=== PATIENT | female | born 1965 | race Caucasian/White ===

== ENCOUNTER → 2018-07-31 15:32 | Outpatient (REF) | payer BC, SELFPAY | LOC: LAB 15:32 | PROVIDERS: Visit Provider Urology | DX: R31.9 Hematuria, unspecified (principal) | CPT/HCPCS: 87086 ==

== ENCOUNTER → 2018-08-08 09:13 | Outpatient (CLI) | payer BC, SELFPAY ==
--- NOTE | 2018-08-08 09:17 | CT_ITS ---
CT abdomen pelvis wo/w con CLINICAL INDICATION: Hematuria, left lower quadrant pain, frequent urinary tract infections ITS.REASON: hematuria ORDERING PHYSICIAN: Josiah Horne MD PATIENT AGE: 53 years COMPARISON: None TECHNIQUE: Axial images obtained without and with contrast with sagittal and coronal reformats. Immediate and delayed post enhanced images are obtained. All CT scans at the facility use one or more dose reduction, viz: automated exposure control, ma/kV adjustment per patient size (including targeted exams where dose is matched to indication, i.e. head), or iterative reconstruction technique. PROCEDURE: Oral Contrast: None IV Contrast: 75 mL of Isovue-370. FINDINGS: Lower thorax: Nonspecific 3 mm nodule is present in the right lung base laterally. A calcified nodules present in the right lung base anteriorly ABDOMEN: The liver, spleen, adrenal glands, pancreas, and gallbladder have an unremarkable appearance. There is a small gastric diverticulum projecting off the posterior aspect of the fundus of the stomach measuring 2.4 cm in diameter. No renal or ureteral calculi. No hydronephrosis or renal mass. The urinary bladder has an unremarkable appearance. Unremarkable appendix. No intestinal obstruction or free air. There is a mild amount retained colonic feces. Scattered small lymph nodes present in the abdomen and retroperitoneum. There is a small umbilical hernia which contains fat. PELVIS: No pelvic mass abnormal fluid collection or focal inflammatory change evident. Prior hysterectomy. There are a few scattered diverticula of the sigmoid colon but no evidence of diverticulitis. No acute bony anomalies. IMPRESSION: 1. No acute abdominal or pelvic findings. 2. No renal or ureteral calculi. 3. Incidental nonacute findings as detailed above.
--- NOTE | 2018-08-08 09:53 | HMH.ITSHM ---
Current Home Medications as stated by this patient Nohemi Vera or outside industrial sales representative. []SERTRALINE,OMEPRAZOLE,METOPROLOL,ATORVASTATION
== END ==
PROVIDERS: PCP Family Medicine; Visit Provider Urology
DX: R31.9 Hematuria, unspecified (principal)
CPT/HCPCS: 74170; 74178; Q9967

== ENCOUNTER → 2020-08-25 12:27 | Outpatient (CLI) | payer BC, SELFPAY | PROVIDERS: PCP Family Medicine; Visit Provider Family Medicine | DX: Z03.818 Encounter for observation for suspected exposure to other biological agents ruled out (principal) | CPT/HCPCS: U0003 ==

== ENCOUNTER → 2020-11-09 06:44 | Outpatient (CLI) | payer BC, SELFPAY ==
[2020-11-09 07:32] LABS: Blood Urea Nitrogen 9 mg/dl (7-17); Estimated Glomerular Filt Rate 74 ml/min (>60); GFR (African American) 90 ML/MIN (>60)
--- NOTE | 2020-11-09 08:10 | CT_ITS ---
PROCEDURE: CT ABDOMEN PELVIS W CON CLINICAL INDICATION: LOW ABD PAIN BILAT LOWER ABD PAIN, LOWER BACK PAIN FOR SEVERAL MONTHS; PT UNABLE TO REMOVE BELLY BUTTON PIERCING COMPARISON: CT ABDPELWW CT abdomen pelvis wo/w con from 08/08/2018 TECHNIQUE: IV Contrast: 75ML Isovue 370 Oral Contrast None Axial images obtained with sagittal and coronal reformats. All CT scans at the facility use one or more dose reduction, viz: automated exposure control, ma/kV adjustment per patient size (including targeted exams where dose is matched to indication, i.e. head), or iterative reconstruction technique. FINDINGS: LOWER THORAX: No acute finding ABDOMEN & PELVIS: Fatty liver. The gallbladder, spleen, adrenal glands, pancreas, and kidneys have an unremarkable appearance. There is a small gastric diverticulum projecting posteriorly in the supra renal region on the left. No intestinal obstruction or free air. There is a small umbilical hernia which contains fat. No evidence of appendicitis. There is a mild amount of retained colonic feces. There are few colonic diverticula but no evidence of diverticulitis. There has been a prior hysterectomy. There are mild osteoarthritic changes of the hips and SI joints with fusion of the inferior aspect of the right SI joint. IMPRESSION: No acute abdominal or pelvic findings. Mild colonic diverticulosis but no evidence of diverticulitis. Nonacute findings as detailed above. Dictated by: Nicholas Morales MD 11/10/2020 09:47 Nicholas Morales MD in [place] 11/10/2020 09:47
== END ==
PROVIDERS: PCP Family Medicine; Visit Provider Nurse Practitioner Family
DX: R10.30 Lower abdominal pain, unspecified (principal)
CPT/HCPCS: 36415; 74177; 82565; 84520; Q9967

== ENCOUNTER 2021-09-11 08:31 | Emergency (ER) | payer BC, SELFPAY ==
[2021-09-11 08:45] VITALS: BP 153/65; PULSE 80; RESP 16; TEMP 37.1; O2SAT 98; BMI 37.1
[2021-09-11 08:56] VITALS: BMI 37.1
[2021-09-11 09:08] LABS: Coronavirus 19, PCR Not Detected (NotDetected); Influenza A, PCR Not Detected (NotDetected); Influenza B, PCR Not Detected (NotDetected)
[2021-09-11 09:14] LABS: Chloride 103 mmol/L (98-107); Potassium 3.5 mmoL/L (3.5-5.1); Sodium 138 mmol/L (136-145)
[2021-09-11 09:16] LABS: Alanine Aminotransferase 20 U/L (12-78); Aspartate Amino Transferase 39 U/L (14-36); Blood Urea Nitrogen 8 mg/dl (7-17); Creatinine Clearance Estimated 128 mL/min (50-200); Estimated Glomerular Filt Rate 74 ml/min (>60); GFR (African American) 89 ML/MIN (>60)
[2021-09-11 09:17] LABS: Albumin Level 4.4 g/dl (3.5-5.0); Albumin/Globulin Ratio 1.4 (1.1-1.8); Alkaline Phosphatase 104 U/L (38-126); Anion Gap 14.5 mEq/L (5-15); Bilirubin,Total 0.6 mg/dl (0.2-1.3); Calcium 9.4 mg/dl (8.4-10.2); Carbon Dioxide 24 mmol/L (22.0-30.0); Globulin 3.1 g/dL (1.3-3.2); Glucose 105 mg/dl (74-100); Lipase 60 U/L (23-300); Total Protein,Serum 7.5 g/dl (6.3-8.2)
--- NOTE | 2021-09-11 09:18 | HMH.EDNVD ---
ED Disposition Clinical Impression: Gastroenteritis Disposition: Home, Self-Care Condition on Discharge: Good Instructions: DI for Viral Gastroenteritis -- Adult Prescriptions: Ondansetron [Zofran 4mg ODT] 4 mg PO BIDP PRN #10 tab PRN Reason: Nausea Prescription Printed Referrals: Bela Vera MD [Primary Care Provider] - - Critical Care Critical Care Time: No Attestation: On 09/11/21, the high probability of a clinically significant, sudden or life threatening deterioration of the following system(s) required my full and direct attention, intervention and personal management. The time I documented below is in addition to time spent performing reported procedures but includes the following listed in this critical care notation. Medical Decision Making - Medical Records Medical records reviewed: Yes: I reviewed the patient's medical records. - Pernell Inquiry Pt receiving controlled substance: No Vital Signs: 09/11/21 08:45 09/11/21 09:52 Temperature 98.8 F Temperature Source Oral Pulse Rate 65 Pulse Rate [Left Radial] 80 Respiratory Rate 16 Blood Pressure 129/83 Blood Pressure [Right Arm] 153/65 H Blood Pressure Mean [Right Arm] 94 Blood Pressure Source [Right Arm] Automatic Cuff Blood Pressure Position [Right Arm] Sitting 02 Sat by Pulse Oximetry 98 94 L Oxygen Delivery Method Room Air - Lab Data Lab Results 09/11/21 08:52: WBC 4.8, RBC 4.67, Hgb 15.1, Hct 43.7, MCV 93.5, MCH 32.3 H, MCHC 34.6, RDW 13.0, Plt Count 187, MPV 8.2, Neut % (Auto) 52.3, Lymph % (Auto) 39.7, Scurry % (Auto) 6.0, Eos % (Auto) 1.4, Baso % (Auto) 0.5, Neut # (Auto) 2.5, Lymph # (Auto) 1.9, Scurry # (Auto) 0.3, Eos # (Auto) 0.1, Baso # (Auto) 0.0 09/11/21 08:52: Sodium 138, Potassium 3.5, Chloride 103, Carbon Dioxide 24, Anion Gap 14.5, BUN 8, Creatinine 0.80, Estimated Creat Clear 128, Estimated GFR 74, Est GFR ( Amer) 89, Glucose 105 H, Calcium 9.4, Total Bilirubin 0.6, AST 39 H, ALT 20, Alkaline Phosphatase 104, Total Protein 7.5, Albumin 4.4, Globulin 3.1, Albumin/Globulin Ratio 1.4, Lipase 60 09/11/21 08:52: SARS-CoV-2 (PCR) Not detected, Influenza A Untype (PCR) Not detected, Influenza Type B (PCR) Not detected 09/11/21 09:50: Urine Color Yellow, Urine Appearance Clear, Urine pH 6.0, Ur Specific [place] 1.020, Urine Protein Negative, Urine Glucose (UA) Negative, Urine Ketones Trace, Urine Blood 2+, Urine Nitrate Negative, Urine Bilirubin 1+ A, Urine Urobilinogen 0.2, Ur Leukocyte Esterase 1+ A, Urine RBC 5-10, Urine WBC 3-5, Ur Squamous Epith Cells Occasional, Urine Bacteria Trace Result diagrams: 09/11/21 08:52 09/11/21 08:52 Orders (Tests/Meds): ED MEDICATIONS Discontinued Medications Generic Name Dose Route Start Last Admin Trade Name Freq PRN Reason Stop Dose Admin Sodium Chloride 1,000 mls @ 999 mls/hr 09/11/21 09:00 09/11/21 09:01 Sod Chlor 0.9% 1000ml Bag IV 09/11/21 10:00 999 mls/hr .Q1H1M SHONA Administration Ondansetron HCl 4 mg 09/11/21 08:49 09/11/21 09:00 Ondansetron 4mg/2ml Vial IV 09/11/21 08:50 4 mg ONCE ONE Administration Promethazine HCl 12.5 mg 09/11/21 08:49 09/11/21 09:00 Promethazine Hcl 25mg/Ml 1ml Vial IV 09/11/21 08:50 12.5 mg ONCE ONE Administration Sodium Chloride 25 ml 09/11/21 08:49 09/11/21 09:00 Sodium Chloride 0.9% 25ml Bag IV 09/11/21 08:50 25 ml ONCE ONE Administration ORDERS Category Date Time Status Urine Culture Stat Micro 09/11/21 09:50 Received - Reevaluation(s) Time: 10:25 Reevaluation #1: On reevaluation, the patient is feeling better. Repeat abdominal examination is benign. No acute abdomen. Patient tolerating oral intake. Findings are consistent with gastroenteritis. She be discharged with short course of antiemetics. Needs follow-up with PCP in 48 hours. Given strict return precautions. Verbalized understanding. Medical Decision Narrative: 56-year-old female presented with na
[2021-09-11 09:30] LABS: Basophils % 0.5 % (0.1-2.0); Eosinophils # 0.1 K/mm3 (0.0-0.4); Eosinophils % 1.4 % (0.1-12.0); Hematocrit 43.7 % (37.0-47.0); Hemoglobin 15.1 g/dL (12.2-16.2); Lymphocytes # 1.9 K/mm3 (0.7-4.5); Lymphocytes % 39.7 % (10-50); Mean Corpuscular HGB Conc 34.6 g/dL (31.8-35.4); Mean Corpuscular Hemoglobin 32.3 pg (27.0-31.2); Mean Corpuscular Volume 93.5 fl (81-99); Mean Platelet Volume 8.2 fl (7.4-10.4); Monocytes # 0.3 K/mm3 (0.1-1.0); Neutrophils # 2.5 K/mm3 (1.8-7.8); Neutrophils % 52.3 % (37.0-80.0); Platelet Count 187 K/mm3 (142-424); Red Blood Count 4.67 M/mm3 (4.20-5.40); White Blood Count 4.8 K/mm3 (4.8-10.8)
[2021-09-11 09:52] VITALS: BP 129/83; PULSE 65; O2SAT 94
[2021-09-11 10:03] LABS: Microscopic, Urine URINE MICROSCOPIC (MICROSCOPIC)
[2021-09-11 10:05] LABS: Appearance,Urine CLEAR (Clear); Blood, Urine 2+ (Negative); Color,Urine YELLOW (Yellow); Glucose,Urine (UA) Negative (Negative); Ketones,Urine TRACE (Negative); Leukocyte Esterase,Urine 1+ (Negative); Nitrate,Urine Negative (Negative); Protein,Urine Negative (Negative); Urobilinogen,Urine 0.2 EU/dl (0.2)
[2021-09-11 10:09] LABS: Bilirubin,Urine 1+ (Negative)
[2021-09-11 10:18] LABS: Bacteria,Urine Trace /lpf; Squamous Epithelial Cell,Urine Occasional #/hpf (0-5)
[2021-09-11 10:35] VITALS: BP 132/80; PULSE 66; RESP 18; TEMP 37.1; O2SAT 98
== END 2021-09-11 10:37 | disposition home or self-care (01) ==
PROVIDERS: Emergency Provider Emergency Medicine; PCP Family Medicine
DX: K52.9 Noninfective gastroenteritis and colitis, unspecified (principal); F17.210 Nicotine dependence, cigarettes, uncomplicated; Z20.822 Contact with and (suspected) exposure to COVID-19
CPT/HCPCS: 80053; 81001; 83690; 85025; 87086; 87088; 87186; 96365; 96375; 99283; C9803; J2405; U0003; U0005

== ENCOUNTER → 2022-07-04 06:17 | Outpatient (CLI) | payer OTHER, SELFPAY ==
[2022-07-04 18:16] LABS: Adenovirus,PCR Not Detected (NotDetected); Bordetella Pertussis Not Detected (NotDetected); Chlamydophila Pneumoniae, PCR Not Detected (NotDetected); Coronavirus 19, PCR Not Detected (NotDetected); Coronavirus 229E Not Detected (NotDetected); Coronavirus NL63 Not Detected (NotDetected); Coronavirus OC43 Not Detected (NotDetected); Coronovirus HKU1,PCR Not Detected (NotDetected); Human Metapneumovirus Not Detected (NotDetected); Influenza A, PCR Not Detected (NotDetected); Influenza AH1, 2009 Not Detected (NotDetected); Influenza AH1, PCR Not Detected (NotDetected); Influenza AH3,PCR Not Detected (NotDetected); Influenza B, PCR Not Detected (NotDetected); Mycoplasma Pneumoniae, PCR Not Detected (NotDetected); Parainfluenza 1, PCR Not Detected (NotDetected); Parainfluenza 2, PCR Not Detected (NotDetected); Parainfluenza 3, PCR Not Detected (NotDetected); Parainfluenza 4, PCR Not Detected (NotDetected); Respiratory Syncytial Virus Not Detected (NotDetected); Rhinovirus/Enterovirus Not Detected (NotDetected)
[2022-07-04 18:31] LABS: Basophils # 0.1 K/mm3 (0-0.2); Basophils % 0.7 % (0.1-2.0); Eosinophils # 0.4 K/mm3 (0.0-0.4); Eosinophils % 3.9 % (0.1-12.0); Hematocrit 38.3 % (37.0-47.0); Hemoglobin 12.8 g/dL (12.2-16.2); Lymphocytes # 3.1 K/mm3 (0.7-4.5); Mean Corpuscular HGB Conc 33.4 g/dL (31.8-35.4); Mean Corpuscular Hemoglobin 31.2 pg (27.0-31.2); Mean Corpuscular Volume 93.4 fl (81-99); Mean Platelet Volume 9.5 fl (7.4-10.4); Monocytes # 0.6 K/mm3 (0.1-1.0); Monocytes % 6.8 % (1.7-9.3); Neutrophils # 5.2 K/mm3 (1.8-7.8); Neutrophils % 55.6 % (37.0-80.0); Platelet Count 262 K/mm3 (142-424); Red Blood Count 4.11 M/mm3 (4.20-5.40); Red Cell Distribution Width 13.3 % (11.5-17.5); White Blood Count 9.3 K/mm3 (4.8-10.8)
== END ==
PROVIDERS: PCP Nurse Practitioner; Visit Provider Nurse Practitioner
DX: Z20.822 Contact with and (suspected) exposure to COVID-19 (principal); R05.9 Cough, unspecified
CPT/HCPCS: 85025; 87581; 87632; 87798; C9803; U0003; U0005

== ENCOUNTER → 2022-08-29 09:42 | Outpatient (CLI) | payer OTHER, SELFPAY ==
[2022-08-29 19:30] LABS: Adenovirus,PCR Not Detected (NotDetected); Coronavirus 229E Not Detected (NotDetected); Coronavirus NL63 Not Detected (NotDetected); Coronavirus OC43 Not Detected (NotDetected); Coronovirus HKU1,PCR Not Detected (NotDetected)
[2022-08-29 19:31] LABS: Bordetella Pertussis Not Detected (NotDetected); Chlamydophila Pneumoniae, PCR Not Detected (NotDetected); Human Metapneumovirus Not Detected (NotDetected); Influenza A, PCR Not Detected (NotDetected); Influenza AH1, 2009 Not Detected (NotDetected); Influenza AH1, PCR Not Detected (NotDetected); Influenza AH3,PCR Not Detected (NotDetected); Influenza B, PCR Not Detected (NotDetected); Mycoplasma Pneumoniae, PCR Not Detected (NotDetected); Parainfluenza 1, PCR Not Detected (NotDetected); Parainfluenza 2, PCR Not Detected (NotDetected); Parainfluenza 3, PCR Not Detected (NotDetected); Parainfluenza 4, PCR Not Detected (NotDetected); Respiratory Syncytial Virus Not Detected (NotDetected); Rhinovirus/Enterovirus Not Detected (NotDetected)
[2022-08-30 21:02] LABS: Coronavirus 19, PCR Detected (NotDetected)
== END ==
PROVIDERS: PCP Nurse Practitioner; Visit Provider Nurse Practitioner
DX: U07.1 COVID-19 (principal)
CPT/HCPCS: 87581; 87632; 87798; C9803; U0003; U0005

== ENCOUNTER → 2022-10-18 10:10 | Outpatient (CLI) | payer OTHER, SELFPAY ==
[2022-10-18 18:36] LABS: Adenovirus,PCR Not Detected (NotDetected); Bordetella Pertussis Not Detected (NotDetected); Chlamydophila Pneumoniae, PCR Not Detected (NotDetected); Coronavirus 19, PCR Not Detected (NotDetected); Coronavirus 229E Not Detected (NotDetected); Coronavirus NL63 Not Detected (NotDetected); Coronavirus OC43 Not Detected (NotDetected); Coronovirus HKU1,PCR Not Detected (NotDetected); Human Metapneumovirus Not Detected (NotDetected); Influenza A, PCR Not Detected (NotDetected); Influenza AH1, 2009 Not Detected (NotDetected); Influenza AH1, PCR Not Detected (NotDetected); Influenza AH3,PCR Not Detected (NotDetected); Influenza B, PCR Not Detected (NotDetected); Mycoplasma Pneumoniae, PCR Not Detected (NotDetected); Parainfluenza 1, PCR Not Detected (NotDetected); Parainfluenza 2, PCR Not Detected (NotDetected); Parainfluenza 3, PCR Not Detected (NotDetected); Parainfluenza 4, PCR Not Detected (NotDetected); Respiratory Syncytial Virus Not Detected (NotDetected); Rhinovirus/Enterovirus Not Detected (NotDetected)
[2022-10-18 19:39] LABS: Basophils # 0.1 K/mm3 (0-0.2); Basophils % 1.1 % (0.1-2.0); Eosinophils # 0.3 K/mm3 (0.0-0.4); Eosinophils % 2.4 % (0.1-12.0); Hematocrit 43.1 % (37.0-47.0); Hemoglobin 13.7 g/dL (12.2-16.2); Lymphocytes # 3.2 K/mm3 (0.7-4.5); Lymphocytes % 30.2 % (10-50); Mean Corpuscular HGB Conc 31.9 g/dL (31.8-35.4); Mean Corpuscular Hemoglobin 30.1 pg (27.0-31.2); Mean Corpuscular Volume 94.5 fl (81-99); Monocytes # 0.7 K/mm3 (0.1-1.0); Monocytes % 6.4 % (1.7-9.3); Neutrophils # 6.4 K/mm3 (1.8-7.8); Neutrophils % 59.9 % (37.0-80.0); Platelet Count 285 K/mm3 (142-424); Red Blood Count 4.56 M/mm3 (4.20-5.40); Red Cell Distribution Width 13.9 % (11.5-17.5); White Blood Count 10.6 K/mm3 (4.8-10.8)
== END ==
PROVIDERS: PCP Nurse Practitioner; Visit Provider Nurse Practitioner
DX: J06.9 Acute upper respiratory infection, unspecified (principal); R05.9 Cough, unspecified
CPT/HCPCS: 85025; 87581; 87632; 87798; C9803; U0003; U0005

== ENCOUNTER → 2022-12-26 23:39 | Outpatient (CLI) | payer OTHER, SELFPAY | PROVIDERS: PCP Nurse Practitioner; Visit Provider Nurse Practitioner | DX: J02.9 Acute pharyngitis, unspecified (principal) ==

== ENCOUNTER → 2023-03-07 12:01 | Outpatient (CLI) | payer OTHER, SELFPAY ==
[2023-03-07 18:42] LABS: Basophils % 0.9 % (0.1-2.0); Eosinophils # 0.2 K/mm3 (0.0-0.4); Eosinophils % 3.9 % (0.1-12.0); Hematocrit 40.6 % (37.0-47.0); Hemoglobin 12.8 g/dL (12.2-16.2); Lymphocytes # 1.9 K/mm3 (0.7-4.5); Lymphocytes % 40.4 % (10-50); Mean Corpuscular HGB Conc 31.6 g/dL (31.8-35.4); Mean Corpuscular Hemoglobin 30.1 pg (27.0-31.2); Mean Corpuscular Volume 95.4 fl (81-99); Mean Platelet Volume 9.5 fl (7.4-10.4); Monocytes # 0.3 K/mm3 (0.1-1.0); Monocytes % 7.1 % (1.7-9.3); Neutrophils # 2.2 K/mm3 (1.8-7.8); Neutrophils % 47.7 % (37.0-80.0); Platelet Count 186 K/mm3 (142-424); Red Blood Count 4.26 M/mm3 (4.20-5.40); Red Cell Distribution Width 13.5 % (11.5-17.5); White Blood Count 4.6 K/mm3 (4.8-10.8)
[2023-03-07 18:53] LABS: Chloride 102 mmol/L (98-107); Potassium 3.7 mmoL/L (3.5-5.1); Sodium 138 mmol/L (136-145)
[2023-03-07 18:55] LABS: Blood Urea Nitrogen 5 mg/dl (7-17)
[2023-03-07 18:56] LABS: Anion Gap 12.7 mEq/L (5-15); Calcium 8.7 mg/dl (8.4-10.2); Carbon Dioxide 27 mmol/L (22.0-30.0); Estimated Glomerular Filt Rate 86 ml/min (>60); GFR (African American) 104 ML/MIN (>60); Glucose 88 mg/dl (74-100)
== END ==
PROVIDERS: PCP Nurse Practitioner; Visit Provider Nurse Practitioner
DX: J06.9 Acute upper respiratory infection, unspecified (principal); U07.1 COVID-19
CPT/HCPCS: 80048; 85025; 87635; C9803; U0003; U0005

== ENCOUNTER → 2023-04-03 10:46 | Outpatient (CLI) | payer SELFPAY ==
--- NOTE | 2023-04-03 10:48 | MM_ITS ---
PROCEDURE INFORMATION: Exam: Bilateral Screening 3D Mammography Exam date and time: 04/03/2023 10:41 AM Age: 57 years old Clinical indication: Screening. Her maternal aunt had breast cancer. TECHNIQUE: Imaging protocol: Bilateral Screening tomosynthesis and 2D mammography including computer-aided detection (CAD) when performed. COMPARISON: No relevant prior studies available.If prior mammograms are provided, I am happy to add an addendum. FINDINGS: MAMMOGRAPHY: Breast composition: The breasts are almost entirely fatty. Mass: 0.3 cm mass in the left breast, in the outer aspect in the CC projection and along the nipple line in the MLO, 1-5 o'clock, 5-6 cm from the nipple. Architectural distortion: None. Calcifications: No suspicious calcifications. Asymmetric density: None. Skin thickening: None. Axillary adenopathy: Questionably dense, but not enlarged, bilateral axillary lymph nodes. Two sub cm masses in the right upper outer quadrant are likely intramammary nodes - which are also borderline dense. Other: Left biopsy clip. IMPRESSION: Comparison to prior mammograms will be most helpful. If these are not provided within 2 weeks, patient will be recalled for bilateral on sonography including the axilla, for further evaluation of borderline abnormal lymph nodes and left mass. ASSESSMENT: BI-RADS Category 0: Incomplete- Need Additional Imaging Evaluation and/or Prior Mammograms for Comparison
== END ==
PROVIDERS: PCP Nurse Practitioner; Visit Provider Nurse Practitioner Family
DX: Z12.31 Encounter for screening mammogram for malignant neoplasm of breast (principal)
CPT/HCPCS: 77063; 77067

== ENCOUNTER → 2023-06-15 08:50 | Outpatient (CLI) | payer OTHER, SELFPAY ==
--- NOTE | 2023-06-15 08:57 | US_ITS ---
PROCEDURE INFORMATION: Exam: US Right Breast, Complete Exam date and time: 06/15/2023 9:21 AM Age: 58 years old Clinical indication: Screening right breast ultrasound. 04/03/2023 mammogram described left-sided 0.3 cm mass and no abnormality in the right breast TECHNIQUE: Imaging protocol: Complete ultrasound of all four quadrants of the right breast and the retroareolar regions, including ultrasound of the axilla when performed. COMPARISON: MG MM DIG SCREENING MAMM BI W/CAD 04/03/2023 10:41 AM FINDINGS: Breast: In the 9 o'clock right breast 2 cm from the nipple, there is a circumscribed anechoic horizontal subcutaneous 0.4 x 0.4 x 0.2 cm mass with echogenic fatty notch. This has features of a benign intramammary lymph node. Otherwise, only normal glandular structures are present in the regions assessed No suspicious solid or cystic mass is present. No architectural distortion or shadowing is present. Axillary lymph nodes demonstrate mild thickening of the cortex with diminutive fatty kavin bilaterally. This likely reflects a systemic etiology such as viral syndrome, connective tissue disorder, rheumatoid arthritis, or other inflammatory/infectious etiology. IMPRESSION: Six-month follow-up targeted ultrasound is recommended to assess stability of a suspected 9 o'clock 0.4 cm right breast lymph node Six-month follow-up targeted ultrasound of the right axilla is recommended to assure stability of prominent lymph nodes ASSESSMENT: BI-RADS category 3: Probably benign
--- NOTE | 2023-06-15 08:58 | US_ITS ---
PROCEDURE INFORMATION: Exam: US Left Breast, Complete Exam date and time: 06/15/2023 9:33 AM Age: 58 years old Clinical indication: Left breast ultrasound. 04/03/2023 mammogram described left-sided 0.3 cm mass and no abnormality in the right breast TECHNIQUE: Imaging protocol: Complete ultrasound of all four quadrants of the left breast and the retroareolar regions, including ultrasound of the axilla when performed. COMPARISON: MG MM DIG SCREENING MAMM BI W/CAD 04/03/2023 10:41 AM FINDINGS: Only normal glandular structures are present in the regions assessed No suspicious solid or cystic mass is present. No benign-appearing solid or cystic mass is present. No architectural distortion or shadowing is present. Axillary lymph nodes demonstrate mild thickening of the cortex with diminutive fatty kavin bilaterally. This likely reflects a systemic etiology such as viral syndrome, connective tissue disorder, rheumatoid arthritis, or other inflammatory/infectious etiology. IMPRESSION: Six-month follow-up left diagnostic mammogram is recommended to assure mammographic stability of a sonographically occult 0.3 cm mass in the slightly lower outer left breast approximately 6 cm from the nipple Six-month follow-up targeted ultrasound of the left axilla is recommended to assure stability of prominent lymph nodes ASSESSMENT: BI-RADS category 3: Probably benign
== END ==
PROVIDERS: PCP Nurse Practitioner Family; Visit Provider Nurse Practitioner Family
DX: R92.8 Other abnormal and inconclusive findings on diagnostic imaging of breast (principal)
CPT/HCPCS: 76641

== ENCOUNTER → 2023-07-05 16:00 | Outpatient (CLI) | payer OTHER, SELFPAY | PROVIDERS: PCP Nurse Practitioner; Visit Provider Nurse Practitioner | DX: R30.0 Dysuria (principal) | CPT/HCPCS: 87086 ==

== ENCOUNTER 2023-10-13 16:51 | Outpatient (CLI) | payer OTHER, SELFPAY ==
[2023-10-13 16:09] LABS: Amphetamine/Metha Screen,Urine Negative ng/ml (<1000); Barbiturates Screen,Urine Negative ng/ml (<200); Benzodiazepines Screen,Urine Negative ng/ml (<200); Cannabinoid Screen,Urine Negative ng/ml (<50); Cocaine Screen,Urine Negative ng/ml (<300); Methadone Screen,Urine Negative ng/ml (<300); Opiate Screen,Urine Negative ng/ml (<300); Phencyclidine Screen,Urine Negative ng/ml (<25)
== END 2023-10-13 23:59 ==
LOC: LAB.DROPOF 16:51
PROVIDERS: PCP Nurse Practitioner Family; Visit Provider Nurse Practitioner Family
DX: M51.16 Intervertebral disc disorders with radiculopathy, lumbar region (principal)
CPT/HCPCS: 80307

== ENCOUNTER 2023-12-15 12:45 | Outpatient (CLI) | payer OTHER, SELFPAY ==
--- NOTE | 2023-12-15 12:46 | US_ITS ---
PROCEDURE INFORMATION: Exam: US Right Breast, Complete US Left Breast, Complete MG Left Diagnostic Breast Tomosynthesis Exam date and time: 12/15/2023 12:53 PM Age: 58 years old Clinical indication: Short-term radiographic followup; Left breast; mass TECHNIQUE: Imaging protocol: Complete ultrasound of all four quadrants of the right breast and the retroareolar regions, including ultrasound of the axilla when performed. Complete ultrasound of all four quadrants of the left breast and the retroareolar regions, including ultrasound of the axilla when performed. Left Diagnostic tomosynthesis and 2D mammography including computer-aided detection (CAD) when performed. Unilateral or bilateral exam. COMPARISON: 1. MG MM DIG SCREENING MAMM BI W/CAD 04/03/2023 10:41 AM 2. US BREAST LT COMPLETE 06/15/2023 9:33 AM FINDINGS: MAMMOGRAPHY: The breast is almost entirely fatty. There is no stellate mass, architectural distortion or suspicious microcalcifications to suggest malignancy. Stable 0.3 cm mass in the middle third of the left lower outer quadrant. No skin thickening or axillary adenopathy. ULTRASOUND: Sonographic images of the left breast including the retroareolar region, all 4 quadrants and the axilla do not demonstrate any solid masses. 0.4 cm left 3 o'clock axis cyst. No architectural distortion or acoustical shadowing. No skin thickening or axillary adenopathy. Fat containing and normal appearing axillary lymph nodes noted IMPRESSION: Stable probably benign subcentimeter mass in the left breast compared to prior mammogram dated 04/03/2023. A six-month follow-up diagnostic bilateral mammogram is recommended for continued close surveillance of the left-sided mass as well as part of an annual screening schedule ASSESSMENT: BI-RADS Category 3: Probably benign.
== END 2023-12-15 23:59 ==
LOC: RAD 12:46
PROVIDERS: PCP Nurse Practitioner Family; Visit Provider Nurse Practitioner Family
DX: R92.8 Other abnormal and inconclusive findings on diagnostic imaging of breast (principal)
CPT/HCPCS: 76641; 77061; 77065; G0279

== ENCOUNTER 2023-12-25 19:34 | Outpatient (CLI) | payer OTHER, SELFPAY ==
[2023-12-25 18:15] LABS: Adenovirus,PCR Not Detected (NotDetected); Coronavirus 19, PCR Not Detected (NotDetected); Coronavirus 229E Not Detected (NotDetected); Coronavirus NL63 Not Detected (NotDetected); Coronavirus OC43 Not Detected (NotDetected); Coronovirus HKU1,PCR Not Detected (NotDetected); Human Metapneumovirus Not Detected (NotDetected); Influenza A, PCR Not Detected (NotDetected); Influenza AH1, 2009 Not Detected (NotDetected); Influenza AH1, PCR Not Detected (NotDetected); Influenza AH3,PCR Not Detected (NotDetected); Influenza B, PCR Not Detected (NotDetected); Parainfluenza 1, PCR Not Detected (NotDetected); Parainfluenza 2, PCR Not Detected (NotDetected); Parainfluenza 3, PCR Not Detected (NotDetected); Parainfluenza 4, PCR Not Detected (NotDetected); Respiratory Syncytial Virus Not Detected (NotDetected)
[2023-12-26 01:20] LABS: Rhinovirus/Enterovirus Detected (NotDetected)
== END 2023-12-25 23:59 ==
LOC: LAB.DROPOF 19:34
PROVIDERS: PCP Nurse Practitioner; Visit Provider Nurse Practitioner
DX: J06.9 Acute upper respiratory infection, unspecified (principal); R09.81 Nasal congestion; R09.82 Postnasal drip; R06.2 Wheezing; B34.1 Enterovirus infection, unspecified
CPT/HCPCS: 87581; 87632; 87635; 87798

== ENCOUNTER 2024-04-10 14:53 | Outpatient (CLI) | payer OTHER, SELFPAY | END 2024-04-10 23:59 | disposition home or self-care (01) | LOC: LAB.DROPOF 14:53 | PROVIDERS: PCP Nurse Practitioner Family; Visit Provider Nurse Practitioner Family | DX: N39.0 Urinary tract infection, site not specified (principal) | CPT/HCPCS: 87086 ==

== ENCOUNTER 2024-05-30 13:59 | Outpatient (CLI) | payer OTHER, SELFPAY ==
--- NOTE | 2024-05-30 14:11 | XR_ITS ---
FINAL REPORT CLINICAL HISTORY: abd pain, r/o stone and constipation COMPARISON: None FINDINGS: Two views of the abdomen demonstrate a nonobstructive bowel gas pattern. There is no significant stool burden. There are no abnormally dilated loops of small bowel. There is no free air. There are no abnormal calcifications. IMPRESSION: No evidence of renal stones. Nonobstructive bowel gas pattern. Reviewed, Interpreted and Dictated by Dieter Rucker MD Transcribed by Ashlee Mejía Authenticated and [facility]
[2024-05-30 16:26] LABS: Adenovirus,PCR Not Detected (NotDetected); Bordetella Pertussis Not Detected (NotDetected); Chlamydophila Pneumoniae, PCR Not Detected (NotDetected); Coronavirus 229E Not Detected (NotDetected); Coronavirus NL63 Not Detected (NotDetected); Coronavirus OC43 Not Detected (NotDetected); Coronovirus HKU1,PCR Not Detected (NotDetected); Human Metapneumovirus Not Detected (NotDetected); Influenza A, PCR Not Detected (NotDetected); Influenza AH1, 2009 Not Detected (NotDetected); Influenza AH1, PCR Not Detected (NotDetected); Influenza AH3,PCR Not Detected (NotDetected); Influenza B, PCR Not Detected (NotDetected); Mycoplasma Pneumoniae, PCR Not Detected (NotDetected); Parainfluenza 1, PCR Not Detected (NotDetected); Parainfluenza 2, PCR Not Detected (NotDetected); Parainfluenza 3, PCR Not Detected (NotDetected); Parainfluenza 4, PCR Not Detected (NotDetected); Respiratory Syncytial Virus Not Detected (NotDetected)
[2024-05-30 16:44] LABS: Basophils # 0.1 K/mm3 (0-0.2); Basophils % 0.7 % (0.1-2.0); Eosinophils # 4.1 K/mm3 (0.0-0.4); Eosinophils % 31.4 % (0.1-12.0); Hematocrit 40.5 % (37.0-47.0); Hemoglobin 13.2 g/dL (12.2-16.2); Lymphocytes # 4.2 K/mm3 (0.7-4.5); Lymphocytes % 32.2 % (10-50); Mean Corpuscular HGB Conc 32.7 g/dL (31.8-35.4); Mean Corpuscular Volume 97.7 fl (81-99); Mean Platelet Volume 9.4 fl (7.4-10.4); Monocytes # 0.6 K/mm3 (0.1-1.0); Monocytes % 4.4 % (1.7-9.3); Neutrophils # 4.1 K/mm3 (1.8-7.8); Neutrophils % 31.2 % (37.0-80.0); Platelet Count 236 K/mm3 (142-424); Red Blood Count 4.14 M/mm3 (4.20-5.40); Red Cell Distribution Width 13.8 % (11.5-17.5); White Blood Count 13.1 K/mm3 (4.8-10.8)
[2024-05-30 17:06] LABS: Alanine Aminotransferase 16 U/L (12-78); Albumin Level 3.8 g/dl (3.5-5.0); Albumin/Globulin Ratio 1.4 (1.1-1.8); Alkaline Phosphatase 106 U/L (38-126); Anion Gap 11.1 mEq/L (5-15); Aspartate Amino Transferase 23 U/L (14-36); Bilirubin,Total 0.5 mg/dl (0.2-1.3); Blood Urea Nitrogen 5 mg/dl (7-17); Calcium 9.2 mg/dl (8.4-10.2); Carbon Dioxide 25 mmol/L (22.0-30.0); Chloride 107 mmol/L (98-107); Estimated Glomerular Filt Rate 102 ml/min (>60); GFR (African American) 124 ML/MIN (>60); Globulin 2.8 g/dL (1.3-3.2); Glucose 81 mg/dl (74-100); Potassium 4.1 mmoL/L (3.5-5.1); Sodium 139 mmol/L (136-145); Total Protein,Serum 6.6 g/dl (6.3-8.2)
[2024-05-30 17:24] LABS: 25-OH Vitamin D, Total 59.8 ng/mL (30-100)
[2024-05-30 17:34] LABS: Hemoglobin A1C 4.9 % (4.0-6.0); Thyroid Stimulating Hormone 2.35 uIU/mL (0.465-4.68)
[2024-05-30 17:53] LABS: Vitamin B12 293 pg/mL (239-931)
[2024-05-30 19:03] LABS: Rhinovirus/Enterovirus Detected (NotDetected)
[2024-05-30 19:04] LABS: Coronavirus 19, PCR Detected (NotDetected)
== END 2024-05-30 23:59 | disposition home or self-care (01) ==
PROVIDERS: PCP Nurse Practitioner Family; Visit Provider Nurse Practitioner Family
DX: R10.9 Unspecified abdominal pain (principal); R11.2 Nausea with vomiting, unspecified; R19.7 Diarrhea, unspecified; M54.9 Dorsalgia, unspecified; R53.83 Other fatigue; U07.1 COVID-19; B34.1 Enterovirus infection, unspecified; Z68.34 Body mass index [BMI] 34.0-34.9, adult; E66.9 Obesity, unspecified
CPT/HCPCS: 74019; 80050; 80053; 82306; 82607; 83036; 84439; 84443; 85025; 87086; 87581; 87632; 87635; 87798

== ENCOUNTER 2024-11-25 11:44 | Outpatient (CLI) | payer OTHER, SELFPAY | END 2024-11-25 23:59 | disposition home or self-care (01) | LOC: LAB.DROPOF 11:45 | PROVIDERS: PCP Nurse Practitioner Family; Visit Provider Nurse Practitioner Family | DX: R30.0 Dysuria (principal) | CPT/HCPCS: 87086 ==

== ENCOUNTER 2024-12-27 07:41 | Outpatient (CLI) | payer OTHER, SELFPAY ==
--- NOTE | 2024-12-27 07:41 | MM_ITS ---
PROCEDURE INFORMATION: Exam: MG Bilateral Screening 3D Mammography Exam date and time: 12/27/2024 8:10 AM Age: 59 years old Clinical indication: Screening examination TECHNIQUE: Imaging protocol: Bilateral Screening tomosynthesis and 2D mammography including computer-aided detection (CAD) when performed. COMPARISON: 1. MG MM DIG MAMM DX UNILAT LT CAD 12/15/2023 12:53 PM 2. MG MM DIG SCREENING MAMM BI W/CAD 04/03/2023 10:41 AM FINDINGS: MAMMOGRAPHY: Breast composition: The breasts are almost entirely fatty. Mass: None. Architectural distortion: None. Calcifications: No suspicious calcifications. Asymmetric density: None. Skin thickening: None. Axillary adenopathy: None. IMPRESSION: No mammographic evidence of malignancy. Annual screening is recommended unless otherwise clinically indicated. ASSESSMENT: BI-RADS Category 1: Negative.
== END 2024-12-27 23:59 | disposition home or self-care (01) ==
LOC: RAD 07:41
PROVIDERS: PCP Nurse Practitioner Family; Visit Provider Nurse Practitioner Family
DX: Z12.31 Encounter for screening mammogram for malignant neoplasm of breast (principal)
CPT/HCPCS: 77063; 77067

== ENCOUNTER 2025-01-22 11:00 | Outpatient (CLI) | payer OTHER, SELFPAY ==
[2025-01-22 13:06] LABS: Coronavirus 19, PCR Not Detected (NotDetected); Influenza A, PCR Not Detected (NotDetected); Influenza B, PCR Not Detected (NotDetected); Respiratory Syncytial Virus Not Detected (NotDetected)
[2025-01-22 16:59] LABS: Human Rhinovirus Detected (NotDetected)
== END 2025-01-22 23:59 | disposition home or self-care (01) ==
LOC: LAB.DROPOF 01-23 09:10
PROVIDERS: PCP Nurse Practitioner Family; Visit Provider Nurse Practitioner Family
DX: R05.1 Acute cough (principal); R68.89 Other general symptoms and signs
CPT/HCPCS: 87631

== ENCOUNTER 2025-04-30 11:38 | Outpatient (CLI) | payer OTHER, SELFPAY ==
--- OUTSIDE RECORDS SUMMARY | 2024-04-23 07:35 | XMS_ITS | Continuity of Care Document ---
Author Organization [facility] o Address [address] [place] [address] Phone Care Team Providers Care Supervisor Incising Name Role Phone Sabino Gimenez MD Unavailable Unavailable Allergies, Adverse Reactions, Alerts Substance Reaction Status Criticality No Known allergies Medications Medication Instructions Dosage Effective Dates (start - stop) Status Comments MELOXICAM 15 MG TABLET 15 Tablet Take 1 Tablet by mouth once daily. - Active Procedures Procedure Date Office/outpatient visit,est, mod 2023 Drain Or inject major jointor bursa Dexamethasone sodium phos Bupivicaine Injection 0.5 mg Office/outpatient visit,[facility], mod 2023 Drain Or inject major jointor bursa Dexamethasone sodium phos Bupivicaine Injection 0.5 mg Office/outpatient visit,[facility], mod 2023 X-ray exam of knee, 4+ views Advance Directives Directive Yes / No Effective Date File Name No Information Encounters Encounter Description Practice Location Reason(s) For Visit Diagnoses Date Provider Providers Copied on Encounter Office/outpat ient visit,est, mod [facility], [address] [place], [address], [place] tel:[phone] [place]on Unilateral primary osteoarthrit is, right kneePain in left knee 4 Pernell Gallo. [address], [place], [id number] , [place]. tel:[phone] Referring Provider: Sabino Regalado, [address] [place], [address] . tel:[phone] Office/outpat ient visit,[facility], [facility] [place], [address], [place] tel:[phone] 00 Darrick Herron Unspecified internal derangement of right knee 4 Pernell Gallo. [address], [place], [id number] , [place]. tel:[phone] Referring Provider: Sabino Regalado, [address] [place], [address] . tel:[phone] [facility], [address] [place] [address], [facility], tel:[phone] 00 Darrick Herron No Information 4 Pernell Gallo. [address], [place], [id number] , [place]. tel:[phone] Referring Provider: Sabino Regalado, [address] [place], [address] . tel:[phone] Office/outpat ient visit,[facility], [address] [place] [address], [address], [place] tel:[phone] 00 Darrick Herron Pain in right knee 4 Pernell Gallo. [address], [place], [id number] , [place]. tel:[phone] Referring Provider: Sabino Regalado, [address] [place], [address] . tel:[phone] Family History Family Member Type Diagnosis Age At Onset No Information Payers Payer name Insurance type Covered alliance party ID Authornini vazquez(s) [employer] By [facility] - [id number] Social History Type Description Quantity Date Captured Comments Sex Female Smoking Status No Information Sexual Orientation Choose not to disclose Gender Identity Choose not to disclose 024 Chief Complaint And Reason For Visit No Information Reason For Referral Reason For Referral No Information Plan Of Treatment Date Type Action Status Future Order: Radiology Order MR I Knee WO Contrast ([id number]), Ordered on: Ordered History Of Present Illness Encounter Date Complaint History Of Prese nt Illness No Information Functional Status Date Functional Assessmen t No Information Instructions Date Instruction Additional Infor mation No Information Assessments Type Assessment Date No Information Patient Care Teams Name Effective Dates (start - stop) Status Members No Information
[2025-04-30 14:22] LABS: Hematocrit 41.2 % (37.0-47.0); Hemoglobin 14.2 g/dL (12.2-16.2); Immature Granulocytes % 0.4 %; Mean Corpuscular HGB Conc 34.5 g/dL (31.8-35.4); Mean Corpuscular Hemoglobin 32.0 pg (27.0-31.2); Mean Corpuscular Volume 92.8 fl (81-99); Nucleated Red Blood Cells % 0 %; Platelet Count 270 K/mm3 (142-424); Red Blood Count 4.44 M/mm3 (4.20-5.40); Red Cell Distribution Width-SD 43.2 fL; White Blood Count 8.4 K/mm3 (4.8-10.8)
[2025-04-30 15:20] LABS: Albumin Level 4.7 g/dl (3.5-5.0); Chloride 104 mmol/L (98-107); Potassium 4.1 mmoL/L (3.5-5.1); Sodium 136 mmol/L (136-145)
[2025-04-30 15:23] LABS: Alanine Aminotransferase 20 U/L (12-78); Albumin/Globulin Ratio 1.7 (1.1-1.8); Alkaline Phosphatase 120 U/L (38-126); Anion Gap 10.1 mEq/L (5-15); Aspartate Amino Transferase 29 U/L (14-36); Bilirubin,Total 0.9 mg/dl (0.2-1.3); Blood Urea Nitrogen 9 mg/dl (7-17); Carbon Dioxide 26 mmol/L (22.0-30.0); Creatinine,Serum 0.70 mg/dl (0.52-1.04); Estimated Glomerular Filt Rate 85 ml/min (>60); GFR (African American) 103 ML/MIN (>60); Globulin 2.8 g/dL (1.3-3.2); Total Protein,Serum 7.5 g/dl (6.3-8.2)
[2025-04-30 15:24] LABS: Calcium 9.6 mg/dl (8.4-10.2); Glucose 90 mg/dl (74-100); Magnesium 1.8 mg/dl (1.6-2.3)
[2025-04-30 15:56] LABS: Ferritin 14.9 ng/ml (11.1-264)
[2025-04-30 18:38] LABS: Thyroid Stimulating Hormone 1.31 uIU/mL (0.465-4.68)
--- OUTSIDE RECORDS SUMMARY | 2025-05-01 15:22 | XMS_ITS | Clinical Summary ---
Author Organization [facility] Address [address] [place] [address] Phone Care Team Providers Care Social Economist Name Role Phone Unavailable Primary Care Provider Unavailabl e Allergies Active Allergy Reactions Criticality Noted Date Comments Varenicline Other (See Comments) 09/30/2013 nightmares Procaine Other (See Comments) 11/19/2009 Reaction to epinephrine, has MVP, heart races too fast, makes me jumpy Medications multivitamin (THERAGRAN) Oral Tablet Take by mouth daily. Active aspirin 81 mg Oral Tablet, Delayed Release (E.C.) Take by mouth daily. Active omeprazole (PRILOSEC) 20 mg Oral Capsule, Delayed Release(E.C.)Indic ations:Gastroesoph ageal reflux disease with esophagitis Take 1 Cap by mouth 2 times daily. 60 Cap 5 7 Active metoprolol (LOPRESSOR) 50 mg Oral TabletIndications: Essential hypertension Take 1 Tab by mouth 2 times daily. 60 Tab 5 7 Active LORazepam (ATIVAN) 2 mg Oral TabletIndications: Anxiety Take 1 Tab by mouth every 8 hours as needed for Anxiety. 60 Tab 2 7 Active sertraline (ZOLOFT) 100 mg Oral TabletIndications: Depression, unspecified depression type,Anxiety Take 1.5 Tabs by mouth daily. 45 Tab 5 7 Active atorvastatin (LIPITOR) 40 mg Oral TabletIndications: Hyperlipidemia with target LDL less than 100 Take 1 Tab by mouth daily. 30 Tab 12 7 Active azithromycin (ZITHROMAX) 250 mg Oral Tablet 2 Active tiZANidine (ZANAFLEX) 4 mg Oral Tablet Take 1 Tablet by mouth nightly as needed for Muscle spasms. 30 Tablet 2 Active diclofenac (VOLTAREN) 75 mg Oral Tablet, Delayed Release (E.C.) Take 1 Tablet by mouth 2 times daily. 30 Tablet 2 Active meloxicam (MOBIC) 15 mg Oral TabletIndications: Lateral epicondylitis of left elbow Take 1 Tablet by mouth in the morning. 30 Tablet 1 2 Active Active Problems Patient Care Coordination No te Formatting of this note migh t be different from the original. 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 02/18/2022 Bilateral primary osteoarthritis of knee 022 Arthritis of carpometacarpal (CMC) joint of both thumbs 03/12/2021 Cervical pain 03/12/2021 COPD, moderate 06/27/2017 Bilateral carpal tunnel syndrome 04/06/2016 Hyperlipidemia LDL goal < 130 07/08/2014 HTN (hypertension) 05/06/2013 Major depression 05/06/2013 GERD (gastroesophageal reflux disease) 3 Ulcerative colitis 06/03/2011 Generalized anxiety disorder 11/19/2009 Other acne 11/19/2009 Asthma 11/19/2009 Allergic rhinitis, cause unspecified 11/19/2009 Mitral valve disorders 11/19/2009 Smoker Overview (04/01/2016): 10/12 PPD, started smoking 21 Wears glasses Immunizations Immunization Administration Dates Next Due Influenza Patient Reported 07/09/2012 Influenza Seasonal Injectable 09/30/2013 Influenza Vaccine Quadrivalent 09/27/2017 Influenza Vaccine, Unspecifi ed Formulation 07/09/2015,07/23/2014,08/18/2011,08/23,06/22/2009 Pneumococcal Polysaccharide 23 Valent 06/03/2011 Tdap 06/03/2011 Surgical History Surgery Date Site/Laterality Comments TONSILLECTOMY DENTAL SURGERY permanent bridges left side top, lower side right, HYSTERECTOMY 04/2003 complete COLONOSCOPY UPPER GASTROINTESTINAL ENDOSCOPY CARPAL TUNNEL RELEASE 04/07/2016 Hand/Bilateral BILATERAL CARPAL TUNNEL RELEASE ; Surgeon: Gopal Delgado MD; Location: [facility]; Service: Hand Medical History Medical History Date Comments Asthma Mitral valve prolapse Endometriosis Ulcerative colitis, left sided (HCC) states Dr. Salgado diagnosed her Hyperlipidemia LDL goal < 130 07/08/2014 Smoker 1/4 PPD, started smoking 21 Cardiac dysrhythmia MVP, takes m etoprolol for this Heart murmur Heartburn Arthritis maxwell thumbs Wears glasses Family History Medical History Relation Name Comments Cirrhosis Father High Blood Pressure Mother Relation Name Status Comments Father Mother Social History Tobacco Use Types Packs/Day Years Used Date Smoking Tobacco: Every Day Cigarettes Smokeless Tobacco: Never Tobacco Cessation:Ready to Q uit: No; Counseling Given: Yes Alcohol Use Standard Drinks/Week Comments No 0 (1 standard drink = 0.6 oz pur e alcohol) Comments No Sex and Gender Information Value Date Recorded Sex Assigned at Not on file Legal Sex Female 3:27 PM EDT Gender Identity Not on file Sexual Orientation Not on file Obstetrics History Para Term AB IAB SAB Ectopic Multiple Livin g Live Births 1 1 1 Date Outcome GA Total Labor Labor/2nd/3rd Weight Sex Type Anes PTL Sahara A1 A5 Name Clin Term Last Filed Vital Signs Vital Sign Reading Time Taken Comments Blood Pressure 126/88 09/27/2017 8:09 AM EST Pulse 74 09/27/2017 8:09 AM EST Temperature 36.3 C (97.3 F) 09/27/2017 8:09 AM EST Respiratory Rate 16 09/27/2017 8:09 AM EST Oxygen Saturation 97% 06/27/2017 10:37 AM EDT Inhaled Oxygen Concentration - - Weight 108.9 kg (240 lb) 01/25/2022 9:02 AM EDT Height 167.6 cm (5' 6 ) 01/25/2022 9:02 AM EDT Body Mass Index 38.74 01/25/2022 9:02 AM EDT Plan of Treatment Upcoming Encounters Date Type Department Care Team (Late st Contact Info) Description 05/30/2025 11:30 AM EDT Office Visit [facility] [place] [address] [facility] Building [address] [place] [phone] Adi Dong MD [address] [place], [place] [id number] Health Maintenance Due Date Last Done Comments Annual Wellness Exam 1967 Hepatitis C Screening 1982 HPV/Pap Cotest 1994 Cologuard 2009 FIT 2009 Sigmoidoscopy 2009 Virtual Colonography 2009 Pneumococcal Vaccine 50+ (2 of 2 - PCV) 06/03/2012 06/03/2011 Breast Cancer Screening 09/27/2018 09/27/20 16, 07/10/2013, 09/27/2011, Additional history exists Cervical Cancer Screening 12/31/2018 Pap Smear 12/31/2018 01/01/2016 (Decl ined), 08/18/2011 DTaP/TDaP/Td (2 - Td or Tdap) 06/03/2021 06/03/2011 COVID-19 Vaccine (3 - 2023- season) 2024 07/01/2021, 06/07/2021 RSV or 60+ (1 - Risk 60-74 years 1-dose series) 2024 Influenza Vaccine (#1) 2025 7, 06/15/2016 (Declined), 01/01/2016 (Declined), Additional history exists Colon Cancer Screening 08/31/2026 Colonoscopy 08/31/2026 08/31/2016, 08/10, 08/30/2010 Zoster Completed 05/26/2018, 03/22/2018 Hepatitis B Vaccine Aged Out No longe r eligible based on patient's age to complete this topic Meningococcal B Vaccine Aged Out No l onger eligible based on patient's age to complete this topic Goals Goal Patient Goal Type Associated Problems Recent Progress Patient-Stated? Author Blood Pressure < 140/90 Blood Pressure 126/88(2016 8:09 AM EST) No Neo Chun MD Maintain a healthy diet, exercise regularly and maintain an ideal body weight General No Ilana Nicole RMA Stay Tobacco Free Lifestyle Ilana Vela RMA Procedures Procedure Name Priority Date/Time Associated Diagnosis Comments MM MAMMO DIGITAL SCREENING W CAD BILAT Routine 09/27/2016 6:55 AM EST Visit for screening mammogram [facility] COLONOSCOPY Routine 08/31/2016 10:2 0 AM EST from Last 3 Months or Most Recently Relevant to Health Maintenance Results * MM MAMMO DIGITAL SCREENING W CAD BILAT (09/27/2016 6:55 AM EST) Anatomical Region Laterality Modality Breast Bilateral Mammography 09/28/2016 10:3 1 AM EST Impressions 09/28/2016 3:52 PM EST : Negative ([id number]) ~ RECOMMENDATION: Routine screening mammogram in 1 year. ~ DISCLAIMER * The patient with a palpable abnormality, unexplained by breast imaging, should be managed on clinical basis by the attending physician. * Breast imaging has a false negative rate of 15%. * The patient was notified by mail of the results of this examination. *The patient's information was entered into a reminder system with a target due date for the next mammogram. The mammogram was reviewed by a Radiologist and CAD. Narrative 09/28/2016 3:52 PM EST Procedure:MM MAMMO DIGITAL SCREENING W CAD BILAT ~ Reason for exam: screening, asymptomatic. ~ MM MAMMO DIG SCREEN CAD BILAT Bilateral CC and MLO view(s) were taken. There are scattered fibroglandular densities. Biopsy clip lower inner quadrant left breast. Mammogram of the contralateral breast reveals no evidence of malignancy. Compared to prior studies the most recent being 07-10-13. ~ us Viral Bernabe V, DO IMG MAMMOGRAPHY ORDERABLES Fin al Result * [facility] COLONOSCOPY (08/31/2016 10:20 AM EST) 08/31/2016 10:2 0 AM EST Narrative [facility] - 08/31/2016 10:20 AM EST [facility] [place] [address] Colonoscopy Report Date: 08/31/2016 10:20 AM Patient Name: NOHEMI LINCOLN .0 Endoscopist(s): Zach Pierre MD Gender: Female (age): 1965 (51) Instrument(s): C-14([id number]) Referring Physician: Francesco Bernabe DO [address] [place] [phone] (phone) (fax) Anesthesia Provider: Tyrone Do CRNA - [facility] (Nurse furnace puncher) Nurse(s): Heather Rivas, RN, BSN (Pre-Procedure) Dahlia Laughlin, RN, BSN (Intra-Procedure) Katerina Lee RN (Post-Procedure) ASA Class: P2 - 08/31/2016 9:34 AM Tyrone Do History of Present Illness: NOHEMI has been assessed and approved for moderate sedation. The History and Physical was reviewed and no changes were noted regarding medications, allergies or medical history. Administered Medications: lidocaine (PF) 40 mg IV Midazolam 2 mg IV propofol 250 mg IV Indications: Abdominal pain - LLQ: 789.04 - R10.32 Diarrhea: 787.91 - R19.7 Fecal Incontinence: 787.60 - R15.9 Irritable Bowel Syndrome-D: 564.1 - K58.0 Vital Signs: Weight (lbs/oz) Height (ft/in) BMI 239 / 5 / 6 38.57 BP (mmHg) Pulse (ppm) Rhythm Resp/min Temp SPO2 (%) 133/76 67 Regular 16 98 (F) 98 Physical Exam: Physical exam was performed on 08/31/2016 at 9:27 AM. Constitutional: Appearance: well nourished,well-developed, well groomed, in no acute distress.. ENMT: Lips/teeth/gums: normal oral mucosa, lips and gums; good dentition. Oropharynx: tongue mid line, normal movement, mucous membranes pink and moist, no oral lesions or exudate. Neck: Neck: normal ROM. Respiratory: Effort: non labored, normal effort. Auscultation: clear to ausculatation bilaterally; no wheezes, rhonchi or rales. Cardiovascular: Auscultation: normal rate and rhythm; normal S1 and S2; no murmurs, rubs or gallops. Gastrointestinal/Abdomen: Abdomen: flat, soft, nontender, nondistended, no hepatosplenomegaly, no guarding, no rebound, no masses, normal bowel sounds. Liver/Spleen: no hepatosplenomegaly. Psychiatric: Orientation: oriented to time, space and person. Mood and affect: no evidence of depression, anxiety or agitation. Procedure: The procedure, indications, preparation and potential complications were explained to the patient, who indicated understanding and signed the corresponding consent forms. This is a/an average risk patient undergoing a Diagnostic colonoscopy. Prior colonoscopy was performed 05/15/2013 .. MAC with IV sedation was administered by a nurse furnace puncher / anesthesiologist. Continuous pulse oximetry, cardiac monitoring blood pressure and CO2 monitoring were performed. Supplemental oxygen was used. The quality of preparation was Adequate. Patient was placed in left lateral decubitus position. The colonoscope was introduced through the rectum and advanced under direct visualization until cecum, appendiceal orifice, ileo-cecal valve and terminal ileum was reached The appendiceal orifice and the ileo-cecal valve were identified.. The colonoscope was retroflexed within the rectum. Careful visualization was performed as the instrument was withdrawn. Patient tolerance to procedure was good. The procedure was not difficult. Digital rectal exam was normal Limitations/Complications: There were no apparent limitations or complications Findings: Excavated lesions Several non-bleeding diverticula were seen in the sigmoid colon. Mucosa Normal mucosa except for ascending colon erythema was noted in the whole colon. Multiple cold forceps biopsies were performed for histology. Normal mucosa was noted in the terminal ileum. Protruding lesions Small grade 1 internal hemorrhoids were noted. Impressions: Diverticulosis of the sigmoid colon. Normal mucosa except for ascending colon erythema in the whole colon. (Biopsy). Normal mucosa in the terminal ileum. Grade 1 internal hemorrhoids. Plan: Stay on Viberzi 100 mg twice a day Maintain a high fiber diet Metamucil 2 capsules twice a day Colonoscopy in 10 years, or sooner if clinically indicated. Result letter for pathology: Result Letter to be mailed upon review of today's pathology. If you have not heard from us in 3-4 weeks,please give us a call at [phone]. Follow-up office visit in 6 months amoxicillin-pot clavulanate 875-125 mg 1 po bid Samples: Jar # 1 : Biopsy in the whole colon Findings: Normal, R/O Inflammation Test(s) requested: Histology Pathology: Pathology was sent to lab, waiting for results Zach Pierre MD Electronically signed on 08/31/2016 10:46:35 AM by Zach Pierre MD us Zach Pierre MD GI PROCEDURE ORDERABLES Fin al Result [facility] [address] [facility] [place] [address], [facility] [phone] from Last 3 Months or Most Recently Relevant to Health Maintenance Insurance [address] PPO ANTHEM PPO
== END 2025-04-30 23:59 | disposition home or self-care (01) ==
LOC: LAB.DROPOF 05-01 15:17
PROVIDERS: PCP Nurse Practitioner Family; Visit Provider Nurse Practitioner Family
DX: G43.109 Migraine with aura, not intractable, without status migrainosus (principal)
CPT/HCPCS: 80053; 82728; 83735; 84443; 85025

== ENCOUNTER 2025-05-14 07:44 | Outpatient (CLI) | payer OTHER, SELFPAY ==
--- OUTSIDE RECORDS SUMMARY | 2024-04-23 07:35 | XMS_ITS | Continuity of Care Document ---
Author Organization [facility] o Address [address] [place] [address] Phone Care Team Providers Care Retail Product Advisor Name Role Phone Sabino Gimenez MD Unavailable [...] sodium phos Bupivicaine Injection 0.5 mg Office/outpatient visit,[facility], mod 2023 Drain Or inject major jointor bursa Dexamethasone sodium phos Bupivicaine Injection 0.5 mg Office/outpatient visit,[facility], mod 2023 X-ray exam of knee, 4+ views Advance Directives Directive Yes / No Effective Date File Name No Information Encounters Encounter Description Practice Location Reason(s) For Visit Diagnoses Date Provider Providers Copied on Encounter Office/outpat ient visit,est, mod [facility], [address] [place], [address], [place] tel:[phone] Eldred[place]hela Herron Unilateral primary osteoarthrit is, right kneePain in left knee 4 Pernell Gallo. [address] [place], [place], [id number] , [place]. tel:[phone] Referring Provider: Sabino Regalado, [address] [place], [address] . tel:[phone] Office/outpat ient visit,[facility], [facility] [place], [address], [place] tel:[phone] 00 Darrick Herron Unspecified internal derangement of right knee 4 Pernell Gallo. [address] [place], [place], [id number] , [place]. tel:[phone] Referring Provider: Sabino Regalado, [address] [place], [address] . tel:[phone] [facility], [address] [place] [address], [facility], tel:[phone] 00 Darrick Herron No Information 4 Pernell Gallo. [address] [place] [address], [place], [id number] , [place]. tel:[phone] Referring Provider: Sabino Regalado, [address] [place], [address] . tel:[phone] Office/outpat ient visit,[facility], [address] [place] [address], [address], [place] tel:[phone] 00 Darrick Herron Pain in right knee 4 Pernell Gallo. [address] [place] [address], [place], [id number] , [place]. tel:[phone] Referring Provider: Sabino Regalado, [address] [place], [address] . tel:[phone] Family History Family Member Type Diagnosis Age At Onset No Information Payers Payer name Insurance type Covered democrat ID Authornini vazquez(s) [employer] By [facility] - [id number] Social History Type Description Quantity Date Captured Comments Sex Female Smoking Status No Information Sexual Orientation Choose not to disclose Gender Identity Choose not to disclose 024 Chief Complaint And Reason For Visit No Information Reason For Referral Reason For Referral No Information Plan Of Treatment Date Type Action Status Future Order: Radiology Order MR I Knee WO Contrast ([id number]), Ordered on: Ordered History Of Present Illness Encounter Date Complaint History Of Prese nt Illness No Information Functional Status Date Functional Assessmen t No Information Instructions Date Instruction Additional Infor mation No Information Assessments Type Assessment Date No Information Patient Care Teams Name Effective Dates (start - stop) Status Members No Information
--- OUTSIDE RECORDS SUMMARY | 2025-05-14 07:48 | XMS_ITS | Clinical Summary ---
Author Organization [facility] Address [address] [place] [address] Phone Care Team Providers Care Drapery Hanger Name Role Phone Unavailable Primary Care Provider [...] migh t be different from the original. [facility] [phone] [facility]-[phone] [facility]- 01/30/17 Problem Noted Date Diagnosed Date Trochanteric [...] RELEASE ; Surgeon: Gopal Delgado MD; Location: [facility]; Service: Hand Medical History Medical [...] Description 05/30/2025 11:30 AM EDT Office Visit [facility] [address] [facility] Building [address] [place] [phone] Adi Dong MD [address] [place], [place] [phone] Health Maintenance Due Date Last Done Comments [...] Impressions 09/28/2016 3:52 PM EST : Negative ([id number]) ~ RECOMMENDATION: Routine screening mammogram in 1 [...] [facility] - 08/31/2016 10:20 AM EST [facility] [place] [address] Colonoscopy Report Date: 08/31/2016 10:20 AM Patient Name: NOHEMI LINCOLN .0 Endoscopist(s): Zach Pierre MD Gender: Female (age): 1965 (51) Instrument(s): C-14([id number]) Referring Physician: Francesco Bernabe DO [address] [place] [phone] (phone) (fax) Anesthesia Provider: Tyrone Do CRNA - [facility] (Nurse behavioral health professional) Nurse(s): Heather Rivas, RN, BSN (Pre-Procedure) Dahlia [...] IV sedation was administered by a nurse behavioral health professional / anesthesiologist. Continuous pulse oximetry, cardiac monitoring [...] 3-4 weeks,please give us a call at [phone]. Follow-up office visit in 6 months amoxicillin-pot [...] ORDERABLES Fin al Result [facility] [address] [facility] [place] [address], [facility] [phone] from Last 3 Months or Most Recently Relevant to Health Maintenance Insurance [address] PPO ANTHEM PPO
--- NOTE | 2025-05-14 08:00 | MR_ITS ---
FINAL REPORT CLINICAL HISTORY: new onset headaches with aura COMPARISON: None FINDINGS: Multi planar MR imaging was obtained through the brain without contrast. Images are somewhat degraded by patient motion. The midline structures appear intact. On T2 and flair axial images the brain parenchyma is homogeneous. On diffusion-weighted images there is no evidence of restricted diffusion. There is lobular mucosal thickening of the left maxillary sinus and minimal mucosal thickening of the right maxillary sinus and ethmoid air cells. The globes are symmetric. There is no intra or extraconal inflammation identified. IMPRESSION: Bilateral maxillary and ethmoid sinusitis, most evident in the left maxillary sinus. Reviewed, Interpreted and Dictated by Dieter Rucker MD Transcribed by Ashlee Mejía Authenticated and [facility]
== END 2025-05-14 23:59 | disposition home or self-care (01) ==
LOC: RAD 07:45
PROVIDERS: PCP Nurse Practitioner Family; Visit Provider Nurse Practitioner Family
DX: G43.109 Migraine with aura, not intractable, without status migrainosus (principal); H53.8 Other visual disturbances; J32.0 Chronic maxillary sinusitis; J32.2 Chronic ethmoidal sinusitis
CPT/HCPCS: 70551

== ENCOUNTER 2025-05-27 12:31 | Outpatient (CLI) | payer OTHER, SELFPAY ==
--- OUTSIDE RECORDS SUMMARY | 2025-05-27 12:33 | XMS_ITS | Clinical Summary ---
Author Organization [facility] Address [address] [place] [address] Phone Care Team Providers Care Acid Operator Name Role Phone Unavailable Primary Care Provider [...] migh t be different from the original. [facility] [id number] [facility]-[id number] [facility]- 01/30/17 Problem Noted Date Diagnosed [...] RELEASE ; Surgeon: Gopal Delgado MD; Location: [facility]; Service: Hand Medical History Medical History Date [...] Description 05/30/2025 11:30 AM EDT [place] [facility] [place] [address] [facility] Building [address] [place] [phone] Adi Dong MD [address] [place], [place] [phone] Health Maintenance Due Date Last Done Comments [...] Impressions 09/28/2016 3:52 PM EST : Negative ([id number]) ~ RECOMMENDATION: Routine screening mammogram in 1 [...] [facility] - 08/31/2016 10:20 AM EST [facility] [place] [address] Colonoscopy Report Date: 08/31/2016 10:20 AM Patient Name: NOHEMI LINCOLN .0 Endoscopist(s): Zach Pierre MD Gender: Female (age): 1965 (51) Instrument(s): C-14([id number]) Referring Physician: Francesco Bernabe DO [address] [place] [phone] (phone) (fax) Anesthesia Provider: Tyrone Do CRNA - [facility] (Nurse bed teacher) Nurse(s): Heather Rivas, RN, BSN (Pre-Procedure) Dahlia [...] IV sedation was administered by a nurse bed teacher / anesthesiologist. Continuous pulse oximetry, cardiac monitoring [...] 3-4 weeks,please give us a call at [phone]. Follow-up office visit in 6 months amoxicillin-pot [...] ORDERABLES Fin al Result [facility] [address] [facility] [place] [address], [facility] [phone] from Last 3 Months or Most Recently Relevant to Health Maintenance Insurance [address] PPO ANTHEM PPO
[2025-05-27 13:39] LABS: Alanine Aminotransferase 16 U/L (12-78); Albumin Level 4.2 g/dl (3.5-5.0); Albumin/Globulin Ratio 1.7 (1.1-1.8); Alkaline Phosphatase 114 U/L (38-126); Anion Gap 11.1 mEq/L (5-15); Aspartate Amino Transferase 25 U/L (14-36); Bilirubin,Total 0.5 mg/dl (0.2-1.3); Blood Urea Nitrogen 8 mg/dl (7-17); Calcium 9.3 mg/dl (8.4-10.2); Carbon Dioxide 25 mmol/L (22.0-30.0); Chloride 107 mmol/L (98-107); Cholesterol 187 mg/dl (140-200); Creatinine,Serum 0.80 mg/dl (0.52-1.04); Estimated Glomerular Filt Rate 73 ml/min (>60); GFR (African American) 89 ML/MIN (>60); Globulin 2.5 g/dL (1.3-3.2); Glucose 100 mg/dl (74-100); HDL Cholesterol 57 mg/dl (40-60); Potassium 4.1 mmoL/L (3.5-5.1); Sodium 139 mmol/L (136-145); Total Protein,Serum 6.7 g/dl (6.3-8.2); Triglycerides 266 mg/dl (30-150)
[2025-05-27 13:50] LABS: C-Reactive Protein 2.8 mg/L (0-4)
[2025-05-27 13:56] LABS: 25-OH Vitamin D, Total 43.4 ng/mL (30-100)
[2025-05-27 15:32] LABS: Ferritin 10.8 ng/ml (11.1-264)
[2025-05-27 17:59] LABS: Vitamin B12 252 pg/mL (239-931)
== END 2025-05-27 23:59 | disposition home or self-care (01) ==
LOC: LAB 12:31
PROVIDERS: PCP Nurse Practitioner Family; Visit Provider Nurse Practitioner Family
DX: R51.9 Headache, unspecified (principal); Z13.220 Encounter for screening for lipoid disorders
CPT/HCPCS: 36415; 80053; 80061; 82306; 82607; 82728; 83735; 86140